=== PATIENT | female | born 1965 | race Two or more races ===

== ENCOUNTER 2018-04-08 10:34 | Emergency (ER) | payer OTHER ==
[2018-04-08 10:49] VITALS: BP 102/56; PULSE 69; TEMP 98.5; BMI 24.6
--- NOTE | 2018-04-08 12:08 | PDOC ---
History of Present Illness - General Chief Complaint: Injury Stated Complaint: FALL/INJURY Time Seen by Provider: 04/08/18 11:19 History Source: Patient Exam Limitations: Clinical Condition - History of Present Illness Initial Comments: 04/08/18 12:03 Patient with no significant past medical history presented with complaint of right shoulder pain status post slip and fall at work today. Patient reported she was trying to remove something from cabinet at work and slipped. Patient denies hitting head or loss of consciousness. Patient reported increased pain when she left right upper arm. Patient denies any other symptoms Timing/Duration: 1-3 hours Past History - Past Medical History Allergies/Adverse Reactions: Allergies Allergy/AdvReac Type Severity Reaction Status Date / Time morphine Allergy Intermediate Rash Verified 04/08/18 10:45 Home Medications: Ambulatory Orders Methocarbamol [Robaxin -] 500 mg PO BID PRN #14 tablet 04/08/18 Naproxen 500 mg PO BID PRN #20 tablet 04/08/18 COPD: No Other medical history: DENIES. - Suicide/Smoking/Psychosocial Hx Smoking History: Never smoked Have you smoked in the past 12 months: No Hx Alcohol Use: No Drug/Substance Use Hx: No Review of Systems - Review of Systems Able to Perform ROS?: Yes Is the patient limited Bhutanese proficient: No Constitutional: No: Weakness HEENTM: No: Blurred Vision, Recent change in vision, Double Vision Respiratory: No: Symptoms reported Cardiac (ROS): No: Symptoms Reported ABD/GI: No: Symptoms Reported, Nausea, Vomiting Musculoskeletal: Yes: See HPI, Joint Pain (right shoulder), Muscle Pain (right shoulder). No: Joint Swelling, Muscle Weakness, Joint Stiffness Neurological: No: Numbness, Paresthesia, Tingling All Other Systems: Reviewed and Negative *Physical Exam - Vital Signs Last Vital Signs Temp Pulse Resp BP Pulse Ox 98.5 F 69 19 102/56 L 100 04/08/18 10:45 04/08/18 10:45 04/08/18 10:45 04/08/18 10:45 04/08/18 10:45 - Physical Exam Comments: 04/08/18 12:05 GENERAL: Well developed, well nourished. Awake and alert. No acute distress. CARDIOVASCULAR: Regular rate and rhythm. No murmurs, rubs, or gallops. PULMONARY: No evidence of respiratory distress. Lungs clear to auscultation bilaterally. No wheezing, rales or rhonchi. ABDOMINAL: Soft. Non-tender. Non-distended. No rebound or guarding. No organomegaly. Normoactive bowel sounds MUSCULOSKELETAL : moderate point tenderness medial aspect of right proximal humerus and lateral deltoid muscle. negative arm drop test. No bony deformities EXTREMITIES: No cyanosis. No clubbing. No edema. No calf tenderness. SKIN: Warm and dry. Normal capillary refill. No rashes. No jaundice. NEUROLOGICAL: Alert, awake, appropriate. No motor deficits in the lower extremities. Gait is normal without ataxia. PSYCHIATRIC: Cooperative. Good eye contact. Appropriate mood and affect. General Appearance: Yes: Nourished, Appropriately Dressed. No: Apparent Distress Moderate Sedation - Procedure Monitoring Vital Signs: Procedure Monitoring Vital Signs Temperature 98.5 F 04/08/18 10:45 Pulse Rate 69 04/08/18 10:45 Respiratory Rate 19 04/08/18 10:45 Blood Pressure 102/56 L 04/08/18 10:45 O2 Sat by Pulse Oximetry (%) 100 04/08/18 10:45 ED Treatment Course - RADIOLOGY Radiology Studies Ordered: Category Date Time Status HUMERUS-RIGHT [RAD] Stat Radiology 04/08/18 11:50 Ordered SHOULDER-RIGHT [RAD] Stat Radiology 04/08/18 11:49 Ordered Medical Decision Making - Medical Decision Making 04/08/18 12:07 Patient with no significant past medication present with complaint of right shoulder pain status post slip and fall today. Exam significant for moderate tenderness to medial side of right proximal arm and deltoid muscle. x-rays of right shoulder and humerus ordered. treat based on imaging results 04/08/18 12:41 x-ray of right shoulder and humerus shows no acute fracture or dislocation. patient stable for discharge on NSAIDS and muscle relaxer with orthopedics follow-up as needed *DC/Admit/Observation/Transfer Diagnosis at time of Disposition: Contusion of right shoulder Qualifiers: Encounter type: initial encounter Qualified Code(s): S40.011A - Contusion of right shoulder, initial encounter Right shoulder pain Qualifiers: Chronicity: acute Qualified Code(s): M25.511 - Pain in right shoulder - Discharge Dispostion Disposition: HOME Condition at time of disposition: Stable Decision to Admit order: No - Prescriptions Prescriptions: Methocarbamol [Robaxin -] 500 mg PO BID PRN #14 tablet PRN Reason: shoulder pain Naproxen 500 mg PO BID PRN #20 tablet PRN Reason: pain - Referrals Referrals: Paul Samuel MD [Staff Physician] - - Patient Instructions Printed Discharge Instructions: Shoulder Sprain, DI for Shoulder Pain Additional Instructions: take medication as needed for pain. rest right shoulder. follow-up with referred orthopedics if symptoms persist for more than 4 days Print Language: IRISH - Post Discharge Activity Forms/Work/School Notes: Back to Work
[2018-04-08] MEDS ORDERED: NAPROXEN 500 MG TABLET (FP) PO ONE (12:46)
[2018-04-08] MEDS ORDERED: NAPROXEN 500 MG TABLET (FP) ONE (12:48)
== END 2018-04-08 12:50 | disposition home or self-care (01) ==
LOC: JERFT 10:34
DX: S40.011A Contusion of right shoulder, initial encounter (principal); W01.0XXA Fall on same level from slipping, tripping and stumbling without subsequent striking against object, initial encounter; Y93.89 Activity, other specified; Y92.69 Other specified industrial and construction area as the place of occurrence of the external cause; Y99.0 Civilian activity done for income or pay
CPT/HCPCS: 73030-TC-RT-FY; 73060-TC-RT-FY; 99281-25

== ENCOUNTER 2018-07-10 17:11 | Emergency (ER) | payer OTHER ==
[2018-07-10 17:32] VITALS: BP 109/65; PULSE 64; TEMP 98.1; BMI 26.4
[2018-07-10] MEDS ORDERED: ACETAMINOPHEN 325 MG TABLET (FP) ONE (19:45)
--- NOTE | 2018-07-13 10:12 | PDOC ---
History of Present Illness - General Chief Complaint: Injury Stated Complaint: FALL/RT SHOULDER PAIN Time Seen by Provider: 07/10/18 17:51 History Source: Patient - History of Present Illness Occurred: reports: other Severity: reports: moderate Past History - Past Medical History Allergies/Adverse Reactions: Allergies Allergy/AdvReac Type Severity Reaction Status Date / Time morphine Allergy Intermediate Rash Verified 07/10/18 17:48 Home Medications: Ambulatory Orders NK [No Known Home Medication] 07/10/18 COPD: No - Immunization History Immunization Up to Date: Yes - Suicide/Smoking/Psychosocial Hx Smoking History: Never smoked Have you smoked in the past 12 months: No Hx Alcohol Use: No Drug/Substance Use Hx: No Review of Systems - Review of Systems Musculoskeletal: Yes: Joint Pain. No: Joint Swelling *Physical Exam - Vital Signs Last Vital Signs Temp Pulse Resp BP Pulse Ox 98.1 F 64 16 109/65 100 07/10/18 17:29 07/10/18 17:29 07/10/18 17:29 07/10/18 17:29 07/10/18 17:29 - Physical Exam General Appearance: Yes: Appropriately Dressed, Mild Distress HEENT: positive: Normal Voice Neck: positive: Supple. negative: Tender, Decreased range of motion Respiratory/Chest: negative: Respiratory Distress Extremity: positive: Normal Inspection, Normal Range of Motion, Tender (to lateral deltoid) Integumentary: positive: Dry, Warm Neurologic: positive: Fully Oriented, Alert, Normal Mood/Affect Moderate Sedation - Procedure Monitoring Vital Signs: Procedure Monitoring Vital Signs Temperature 98.1 F 07/10/18 17:29 Pulse Rate 64 07/10/18 17:29 Respiratory Rate 16 07/10/18 17:29 Blood Pressure 109/65 07/10/18 17:29 O2 Sat by Pulse Oximetry (%) 100 07/10/18 17:29 Medical Decision Making - Medical Decision Making 07/13/18 10:01 Chart completed today as system went on downtime 07/10/18 when I actually saw pt. Downtime chart complected 52-year-old female, no significant past medical history, here with R shoulder pain s/p fall several days ago. Not taking anything for pain. No neck pain, sensory changes or upper extremity weakness. Patient's exam only remarkable for tenderness to lateral deltoid. X-ray done and showed cortical irregularity and patient was sent for CT for better evaluation. At some point, patient's son called me on the phone to inform me that patient did sustain a right shoulder fracture, status post fall 3 months ago and that she came in today because she re-injured same shoulder 3 days ago. Of note, patient did not inform me of this earlier. Patient was discharged with sling and ortho follow- up prior to CT being read because of low clinical suspicion for an acute process. CT report now reviewed by myself and read as negative for acute fracture but does show old trauma. No need for CB. *DC/Admit/Observation/Transfer Diagnosis at time of Disposition: Pain - Discharge Dispostion Disposition: HOME - Referrals - Patient Instructions - Post Discharge Activity
== END 2018-07-10 21:45 | disposition home or self-care (01) ==
LOC: JERFT 17:11
DX: M25.511 Pain in right shoulder (principal); W01.0XXA Fall on same level from slipping, tripping and stumbling without subsequent striking against object, initial encounter; Y93.89 Activity, other specified; Y92.89 Other specified places as the place of occurrence of the external cause; Y99.8 Other external cause status
CPT/HCPCS: 73030-TC-RT-FY; 73200-TC-RT; 99281-25

== ENCOUNTER 2018-09-08 10:04 | Day surgery (SDC) | payer OTHER ==
[2018-09-07 15:25] VITALS: BMI 26.5
[2018-09-08 13:17] VITALS: TEMP 98
[2018-09-08 14:05] VITALS: BP 112/69; PULSE 56
== END 2018-09-08 14:05 | disposition home or self-care (01) ==
LOC: JASU-ENDO 10:04
PROVIDERS: ATTEND Internal Medicine Gastroenterology
PROC: 0DB68ZX Excision of Stomach, Via Natural or Artificial Opening Endoscopic, Diagnostic (ICD-10-PCS; principal; 2018-09-08 11:00)
DX: K25.9 Gastric ulcer, unspecified as acute or chronic, without hemorrhage or perforation (principal)
CPT/HCPCS: 88305-TC; 88342-TC

== ENCOUNTER 2018-09-15 11:14 | Day surgery (SDC) | payer OTHER | END 2018-09-15 15:15 | disposition home or self-care (01) | LOC: JASU-ENDO 11:14 ==

== ENCOUNTER 2022-05-07 04:34 | Day surgery (SDC) | payer OTHER ==
[2022-05-02 16:40] VITALS: BMI 25.0
[2022-05-07 12:04] VITALS: TEMP 97.3
[2022-05-07 12:39] VITALS: BP 112/67; PULSE 50; RESP 16
== END 2022-05-07 12:50 | disposition home or self-care (01) ==
LOC: JASU-ENDO 04:34
PROVIDERS: ATTEND Internal Medicine Gastroenterology
PROC: 0DB78ZX Excision of Stomach, Pylorus, Via Natural or Artificial Opening Endoscopic, Diagnostic (ICD-10-PCS; 2022-05-07)
PROC: 0DB68ZX Excision of Stomach, Via Natural or Artificial Opening Endoscopic, Diagnostic (ICD-10-PCS; 2022-05-07)
PROC: 0DB48ZX Excision of Esophagogastric Junction, Via Natural or Artificial Opening Endoscopic, Diagnostic (ICD-10-PCS; principal; 2022-05-07 10:30)
DX: K21.9 Gastro-esophageal reflux disease without esophagitis (principal); K29.50 Unspecified chronic gastritis without bleeding; K22.89 Other specified disease of esophagus
CPT/HCPCS: 88305-TC; 88342-TC